=== PATIENT | male | born 1975 | race Caucasian/White ===

== ENCOUNTER 2023-02-28 13:10 | Emergency (ER) | payer OTHER ==
[~2023-02-28] VITALS: Ht 167.6 cm; Wt 204.1 kg
[2023-02-28 13:30] VITALS: BP_SYST 147; PULSE 80; RESP 18; TEMP 97.5; O2SAT 99
[2023-02-28] MEDS ORDERED: KETOROLAC TROMETHAMINE 30 MG VIAL IM ONE (16:15)
[2023-02-28] MEDS ORDERED: NEU300 PO (16:25)
== END 2023-02-28 17:01 | disposition home or self-care (01) ==
LOC: SED 13:10
DX: M54.50 Low back pain, unspecified (principal); I10 Essential (primary) hypertension; Z79.899 Other long term (current) drug therapy
CPT/HCPCS: 99283; 96372; J1885